=== PATIENT | female | born 1980 | race Caucasian/White ===

== ENCOUNTER 2021-10-07 13:57 | Emergency (ER) | payer OTHER ==
[~2021-10-07] VITALS: Ht 162.6 cm; Wt 59.9 kg
[2021-10-07] MEDS ORDERED: OXCA150 PO (14:17)
[2021-10-07] MEDS ORDERED: LEVE500 PO (14:17)
== END 2021-10-07 14:47 | disposition home or self-care (01) ==
LOC: ER 13:57
DX: G40.909 Epilepsy, unspecified, not intractable, without status epilepticus (principal); Z88.1 Allergy status to other antibiotic agents; Z79.899 Other long term (current) drug therapy
CPT/HCPCS: 99284

== ENCOUNTER 2021-12-17 06:40 | Inpatient (IN) | payer OTHER ==
[~2021-12-17] VITALS: Ht 162.6 cm; Wt 58.0 kg
[~2021-12-17 06:40] MED LIST: LACOSAMIDE50 M1 PO; LEVE500 PO; OXCA150 PO
--- NOTE | 2021-12-17 07:40 | NUR ---
Ambulatory in Day Surgery History, Chart, Medications and Allergies reviewed before start of procedure. Pre-Op teaching done. Pt verbalizes understanding.
--- NOTE | 2021-12-17 16:31 | NUR ---
pt getting oob assited by pt. pt requests bp recheck after she returns to bed as feels high bp is due to pain and does not want to take apresoline unless absolutely necessary
--- NOTE | 2021-12-17 18:33 | NUR ---
PT REPORTS PAIN IS 6-8/10 BUT THAT SHE HAS CHRONIC PAIN SO TYPICALLY HAS PAIN OF 6/10. STUMP SOCK WITH 3 INCH AREA OF BLOODY DRAINAGE ON TIP OF SOCK. DR BARRERA IN TO SEE PATIENT AND VISUALIZED DRAINAGE. JUANCHO WITH BLOODY OUTPUT. PT SITTING IN CHAIR, COY PO AND VOIDING CLEAR YELLOW URINE. PT HOPING TO DISCHARGE HOME IN AM AND STATES SHE HAS MANY FRIENDS WHO CAN ASSIST HER WITH NEEDS
[2021-12-18 04:43] LABS: BASOPHILS ABSOLUTE AUTO 0.03 K/mm3 (0.00-0.23); BASOPHILS PERCENT AUTO 1 % (0-2); EOSINOPHILS ABSOLUTE AUTO 0.15 K/mm3 (0.00-0.68); EOSINOPHILS PERCENT AUTO 2 % (0-6); Hematocrit 39.1 % (33.0-51.0); Hemoglobin 13.8 g/dL (11.5-16.0); IMMATURE GRAN ABSOLUTE AUTO 0.01 K/mm3 (0.00-0.10); IMMATURE GRAN PERCENT AUTO 0 % (0-1); LYMPHOCYTES ABSOLUTE AUTO 1.16 K/mm3 (0.84-5.20); LYMPHOCYTES PERCENT AUTO 18 % (21-46); MONOCYTES ABSOLUTE AUTO 0.75 K/mm3 (0.16-1.47); MONOCYTES PERCENT AUTO 12 % (4-13); Mean Corpuscular HGB 33.7 pg (26.0-34.0); Mean Corpuscular HGB Conc 35.3 g/dL (31.5-36.5); Mean Corpuscular Volume 95 fL (80-100); Mean Platelet Volume 9.2 fL (9.1-12.4); NEUTROPHILS ABSOLUTE AUTO 4.35 K/mm3 (1.96-9.15); NEUTROPHILS PERCENT AUTO 67 % (41-73); Platelet Count 256 K/mm3 (150-400); RDW Coefficient Variation 12.2 % (11.7-14.2); RDW Standard Deviation 42.8 fL (35.1-46.3); White Blood Cell Count 6.45 K/mm3 (4.00-11.30)
--- NOTE | 2021-12-18 05:02 | NUR ---
[employer]IN[employer] SUMMARY PT [id number] AND PLEASANT. HAS BEEN ABLE TO GET TO [facility] WITH 1 ASSIST AND FWW VERY WELL. AT START OF SHIFT SOME ADDITIONAL DRAINAGE TO STUMP SOCK NOTED BEYOND WHAT DAY SHIFT RN HAD MARKED. THIS WAS RIGHT AFTER PT HAD GOT UP TO THE BATHROOM. DRAINAGE HAS NOT EXTENDED PAST THAT POINT THROUGH THE NIGHT. PAIN CONTROLLED WITH PO PAIN MEDS. VSS, WILL CONTINUE TO MONITOR.
--- NOTE | 2021-12-18 18:22 | NUR ---
pt reports pain controlled with po meds. right leg dressing without drainage. pt able to transfer independent with use of walker to chair and commode. pt anticipates dc in am
--- NOTE | 2021-12-19 04:27 | NUR ---
SHIFT SUMMARY PT HAS DONE WELL OVERNIGHT. DRESSING INTACT TO RIGHT STUMP CHANGED BY SURGEON YESTERDAY AFTERNOON. DRESSING IS C/D/I. PT PAIN OVERALL HAS BEEN WELL CONTROLLED. MEDICATED PER EMAR. PT HAS BEEN INDEPENDENT IN THE ROOM, DENIES NEEDS MOST TIMES WHEN ASKED. ASSESSMENT UNCHANGED OVERNIGHT, PLAN IS FOR DC TODAY. BED IN LOWEST POSITION, CALL LIGHT WITHIN REACH.
[2021-12-19] MEDS ORDERED: HYDR1TAB94 PO (11:44)
[2021-12-19] MEDS ORDERED: DOCU100 PO (11:45)
--- NOTE | 2021-12-19 12:34 | NUR ---
ATTEMPT MADE TO ARRANGE W/C TRANSPORT FROM [facility] TO [facility] AND THEN HOME. [facility] REPORTED THEY ARE UNABLE TO DO W/C TRANSPORT UNLESS PT HAS THEIR OWN W/C. [facility] IN CARE MANAGEMENT NOTIFIED AND IS ARRANGING TRANSPORT HOME.
--- NOTE | 2021-12-19 13:10 | NUR ---
JOHANA PT PROVIDED WITH WRITTEN AND VERBAL DISCHARGE INSTRUCTIONS; SHE REPORTED UNDERSTANDING. PT EDUCATED TO CALL DR. BARRERA'S OFFICE Tuesday FOR A DRESSING CHANGE AND FOLLOW UP. W/C TRANSPORT TO PHARMACY AND HOME ARRANGED THROUGH [facility] WITH [facility]. PT LEFT VIA AMBULANCE TRANSPORT AT APPROXIMATELY 1307.
== END 2021-12-19 13:07 | disposition home or self-care (01) | DRG 476 ==
LOC: SURS 06:40 → PRE IP 08:30 → SURS 12:40
PROVIDERS: ADMIT Orthopaedic Surgery
PROC: 0Y6H0Z3 Detachment at Right Lower Leg, Low, Open Approach (ICD-10-PCS; principal; 2021-12-17 08:30)
DX: M21.961 Unspecified acquired deformity of right lower leg (principal); Q85.00 Neurofibromatosis, unspecified; I97.3 Postprocedural hypertension; M25.571 Pain in right ankle and joints of right foot; G89.29 Other chronic pain; G40.909 Epilepsy, unspecified, not intractable, without status epilepticus; Z90.710 Acquired absence of both cervix and uterus; Y83.8 Other surgical procedures as the cause of abnormal reaction of the patient, or of later complication, without mention of misadventure at the time of the procedure
CPT/HCPCS: 36415; 85025; 88307; 97110; 97116; 97162; 97165; 97530; 97535; A9270; J0360; J0690; J1100; J1170; J1650; J2250; J2405; J2704; J2795; J3010; J7120

== ENCOUNTER 2024-04-23 08:22 | Emergency (ER) | payer OTHER ==
[~2024-04-23] VITALS: Ht 160 cm; Wt 63.5 kg
[~2024-04-23 08:22] MED LIST changes: +DOCU100 PO; +HYDR1TAB94 PO
[2024-04-23 08:42] LABS: BASOPHILS ABSOLUTE AUTO 0.02 K/mm3 (0.00-0.23); BASOPHILS PERCENT AUTO 0 % (0-2); EOSINOPHILS ABSOLUTE AUTO 0.13 K/mm3 (0.00-0.68); EOSINOPHILS PERCENT AUTO 2 % (0-6); Hematocrit 43.6 % (33.0-51.0); Hemoglobin 14.5 g/dL (11.5-16.0); IMMATURE GRAN ABSOLUTE AUTO 0.03 K/mm3 (0.00-0.10); IMMATURE GRAN PERCENT AUTO 1 % (0-1); LYMPHOCYTES ABSOLUTE AUTO 0.89 K/mm3 (0.84-5.20); LYMPHOCYTES PERCENT AUTO 16 % (21-46); MONOCYTES ABSOLUTE AUTO 0.41 K/mm3 (0.16-1.47); MONOCYTES PERCENT AUTO 7 % (4-13); Mean Corpuscular HGB 32.5 pg (26.0-34.0); Mean Corpuscular HGB Conc 33.3 g/dL (31.5-36.5); Mean Corpuscular Volume 98 fL (80-100); Mean Platelet Volume 9.9 fL (9.1-12.4); NEUTROPHILS ABSOLUTE AUTO 4.09 K/mm3 (1.96-9.15); NEUTROPHILS PERCENT AUTO 73 % (41-73); Platelet Count 277 K/mm3 (150-400); RDW Coefficient Variation 11.5 % (11.7-14.2); RDW Standard Deviation 41.8 fL (35.1-46.3); Red Blood Cell Count 4.46 M/mm3 (3.80-5.20); White Blood Cell Count 5.57 K/mm3 (4.00-11.30)
[2024-04-23 09:00] LABS: Magnesium, Blood 2.2 mg/dL (1.6-2.4)
[2024-04-23 09:01] LABS: Albumin, Blood 3.6 g/dL (3.4-5.0); Albumin/Globulin Ratio 1.2 (0.8-1.8); Bilirubin, Total 0.2 mg/dL (0.1-1.0); Bun/Creatinine Ratio 32.6 (12.0-20.0); Calcium, Blood 8.8 mg/dL (8.5-10.1); Creatinine, Blood 0.77 mg/dL (0.40-1.00); Potassium, Blood 3.9 mmol/L (3.5-5.5); Total Protein, Blood 6.6 g/dL (6.4-8.2)
[2024-04-23 11:00] VITALS: BP 123/77
[2024-04-24 17:55] LABS: KEPPRA (LEVETIRACETAM) 84 ug/mL (10-40)
== END 2024-04-23 11:56 | disposition home or self-care (01) ==
LOC: ER 08:22
PROVIDERS: Physician Assistant
DX: R56.9 Unspecified convulsions (principal); Z79.899 Other long term (current) drug therapy
CPT/HCPCS: 80053; 80177; 83605; 83735; 85025; 93005; 93010; 99284-25

== ENCOUNTER 2024-10-11 12:00 | Emergency (ER) | payer OTHER ==
[~2024-10-11] VITALS: Ht 160 cm; Wt 60.8 kg
[2024-10-11 13:34] VITALS: BP 139/93
== END 2024-10-11 14:15 | disposition home or self-care (01) ==
LOC: ER 12:00
DX: E16.2 Hypoglycemia, unspecified (principal); Z87.891 Personal history of nicotine dependence; Z79.899 Other long term (current) drug therapy; Z88.1 Allergy status to other antibiotic agents
CPT/HCPCS: 82947; 99285